=== PATIENT | female | born 1970 | race Asian ===

== ENCOUNTER 2018-07-06 14:46 | Outpatient (CLI) | payer OTHER ==
[2018-07-06] MEDS ORDERED: GABA300C2 PO (18:08)
[2018-07-06] MEDS ORDERED: AMIT25TA22 PO (18:09)
[2018-07-06] MEDS ORDERED: CELEXA40 MG PO (18:09)
[2018-07-06] MEDS ORDERED: HYDRALAZINE50 MG PO (18:10)
[2018-07-06] MEDS ORDERED: PROVENTIL108 MCG/AC INH (18:11)
[2018-07-06] MEDS ORDERED: NIFE30TA PO (18:11)
[2018-07-06] MEDS ORDERED: RANI150T78 PO (18:12)
[2018-07-06] MEDS ORDERED: CYCL10TA35 PO (18:13)
[2018-07-06] MEDS ORDERED: CARV25TA PO (18:13)
== END 2018-07-06 14:49 | disposition short-term general hospital (02) ==
LOC: AMB 14:46
DX: R06.02 Shortness of breath (principal)
CPT/HCPCS: A0425; A0427

== ENCOUNTER 2018-07-06 14:50 | Emergency (ER) | payer OTHER ==
[~2018-07-06] VITALS: Ht 162.6 cm; Wt 192.8 kg
[2018-07-06 15:25] LABS: PLATELET COUNT 290 K/uL (152-353)
[2018-07-06 15:30] LABS: POTASSIUM 3.7 mmol/L (3.6-5.2); SODIUM 141 mmol/L (136-145)
[2018-07-06] MEDS ORDERED: GABA300C2 PO (18:08)
[2018-07-06] MEDS ORDERED: CELEXA40 MG PO (18:09)
[2018-07-06] MEDS ORDERED: AMIT25TA22 PO (18:09)
[2018-07-06] MEDS ORDERED: HYDRALAZINE50 MG PO (18:10)
[2018-07-06] MEDS ORDERED: PROVENTIL108 MCG/AC INH (18:11)
[2018-07-06] MEDS ORDERED: NIFE30TA PO (18:11)
[2018-07-06] MEDS ORDERED: RANI150T78 PO (18:12)
[2018-07-06] MEDS ORDERED: CYCL10TA35 PO (18:13)
[2018-07-06] MEDS ORDERED: CARV25TA PO (18:13)
[2018-07-06 23:00] VITALS: BP 187/116
== END 2018-07-06 23:00 | disposition short-term general hospital (02) ==
LOC: ED 14:50
PROVIDERS: Emergency Medicine
DX: J18.8 Other pneumonia, unspecified organism (principal); R06.03 Acute respiratory distress; R06.02 Shortness of breath
CPT/HCPCS: 36415; 36600; 51702; 80053; 81000; 82550; 82553; 82805; 83880; 84484; 85027; 93005; 94664; 96374; 96376; 99285; J1940; J3490

== ENCOUNTER 2018-07-21 10:08 | Outpatient (CLI) | payer OTHER ==
[~2018-07-21 10:08] MED LIST: AMIT25TA22 PO; CARV25TA PO; CELEXA40 MG PO; CYCL10TA35 PO; GABA300C2 PO; HYDRALAZINE50 MG PO; NIFE30TA PO; PROVENTIL108 MCG/AC INH; RANI150T78 PO
[2018-07-22] MEDS ORDERED: CYCL10TA35 PO (11:52)
== END 2018-07-21 10:13 | disposition short-term general hospital (02) ==
LOC: AMB 10:08
DX: R26.2 Difficulty in walking, not elsewhere classified (principal)
CPT/HCPCS: A0425; A0429

== ENCOUNTER 2018-07-21 10:10 | Inpatient (IN) | payer OTHER ==
[~2018-07-21] VITALS: Ht 152.4 cm; Wt 217.7 kg
[2018-07-21] VITALS (8 sets, daily range): BP systolic 157–185; BP diastolic 84–120; TEMP 97.7–98.6; Ht 152.4 cm; Wt 217.7 kg
[2018-07-21 11:19] LABS: PLATELET COUNT 202 K/uL (152-353)
[2018-07-21 11:47] LABS: POTASSIUM 3.2 mmol/L (3.6-5.2); SODIUM 143 mmol/L (136-145)
[2018-07-22] VITALS: BP 133/56; TEMP 99.2
[2018-07-22 04:00] VITALS: BP 157/65; TEMP 99.1
[2018-07-22 08:05] VITALS: BP 135/59; TEMP 98.8
[2018-07-22] MEDS ORDERED: CYCL10TA35 PO (11:52)
[2018-07-22 12:06] VITALS: BP 143/59; TEMP 99
[2018-07-22 12:31] LABS: PLATELET COUNT 197 K/uL (152-353)
[2018-07-22 13:02] LABS: POTASSIUM 3.3 mmol/L (3.6-5.2); SODIUM 146 mmol/L (136-145)
[2018-07-22 16:21] VITALS: BP 110/96; TEMP 98.1
[2018-07-22 20:00] VITALS: BP 136/79; TEMP 98.2
[2018-07-23] VITALS: BP 127/90; TEMP 98.2
[2018-07-23 04:00] VITALS: BP 143/77; TEMP 98.6
[2018-07-23 06:28] LABS: PLATELET COUNT 180 K/uL (152-353)
[2018-07-23 06:43] LABS: POTASSIUM 3.7 mmol/L (3.6-5.2)
[2018-07-23 08:27] VITALS: BP 133/73; TEMP 98.7
[2018-07-23 12:18] VITALS: BP 147/95; TEMP 98.7
[2018-07-23 16:26] VITALS: BP 152/80; TEMP 98.4
[2018-07-23 20:00] VITALS: BP 150/79; TEMP 99.2
[2018-07-24] VITALS: BP 157/74; TEMP 99.1
[2018-07-24 03:57] VITALS: BP 141/82; TEMP 98.7
[2018-07-24 05:55] LABS: PLATELET COUNT 170 K/uL (152-353)
[2018-07-24 06:11] LABS: POTASSIUM 3.3 mmol/L (3.6-5.2)
[2018-07-24 08:14] VITALS: BP 133/74; TEMP 97.9
[2018-07-24 12:07] VITALS: BP 145/71; TEMP 97.5
[2018-07-24 16:05] VITALS: BP 133/65; TEMP 98
[2018-07-24 20:00] VITALS: BP 140/65; TEMP 99
[2018-07-25] VITALS: BP 143/77; TEMP 98.7
[2018-07-25 04:00] VITALS: BP 127/64; TEMP 98.3
[2018-07-25 05:33] LABS: PLATELET COUNT 189 K/uL (152-353)
[2018-07-25 05:51] LABS: POTASSIUM 3.5 mmol/L (3.6-5.2)
[2018-07-25 08:28] VITALS: BP 137/74; TEMP 98.3
[2018-07-25 12:03] VITALS: BP 160/66; TEMP 99.1
[2018-07-25 16:05] VITALS: BP 133/68; TEMP 98.4
[2018-07-25 20:07] VITALS: BP 174/89; TEMP 98.2
[2018-07-26 00:16] VITALS: BP 138/84; TEMP 99.1
[2018-07-26 04:00] VITALS: BP 147/70; TEMP 98.6
[2018-07-26 05:35] LABS: PLATELET COUNT 192 K/uL (152-353)
[2018-07-26 06:01] LABS: POTASSIUM 3.4 mmol/L (3.6-5.2)
[2018-07-26 08:17] VITALS: BP 136/70; TEMP 98.3
[2018-07-26 12:00] VITALS: BP 138/68; TEMP 98.1
[2018-07-26 16:12] VITALS: BP 135/70; TEMP 97.8
[2018-07-26 20:27] VITALS: BP 131/63; TEMP 98.5
[2018-07-27] VITALS: BP 138/60; TEMP 98.8
[2018-07-27 04:00] VITALS: BP 134/69; TEMP 98
[2018-07-27 04:07] LABS: PLATELET COUNT 205 K/uL (152-353)
[2018-07-27 06:16] LABS: POTASSIUM 3.5 mmol/L (3.6-5.2)
[2018-07-27 08:00] VITALS: BP 143/76; TEMP 98.2
[2018-07-27 12:00] VITALS: BP 160/86; TEMP 98.5
[2018-07-27 16:00] VITALS: BP 142/72; TEMP 98.1
[2018-07-27 20:00] VITALS: BP 148/78; TEMP 98.8
[2018-07-28] VITALS: BP 133/66; TEMP 99.3
[2018-07-28 04:00] VITALS: BP 134/77; TEMP 98.8
[2018-07-28 07:27] LABS: PLATELET COUNT 188 K/uL (152-353)
[2018-07-28 08:10] VITALS: BP 152/82; TEMP 99.1
[2018-07-28 08:17] LABS: POTASSIUM 3.6 mmol/L (3.6-5.2)
[2018-07-28 12:18] VITALS: BP 119/63; TEMP 98.9
[2018-07-28 16:12] VITALS: BP 145/75; TEMP 98.4
[2018-07-28 20:00] VITALS: BP 135/69; TEMP 99.2
[2018-07-29] VITALS: BP 148/85; TEMP 98.6
[2018-07-29 04:00] VITALS: BP 145/83; TEMP 98.4
[2018-07-29 07:03] LABS: PLATELET COUNT 231 K/uL (152-353)
[2018-07-29 07:12] LABS: POTASSIUM 3.3 mmol/L (3.6-5.2)
[2018-07-29 08:05] VITALS: BP 138/82; TEMP 98.6
[2018-07-29 12:15] VITALS: BP 137/77; TEMP 98.9
[2018-07-29 16:03] VITALS: BP 139/75; TEMP 98.8
[2018-07-29 20:08] VITALS: BP 149/73; TEMP 98.6
[2018-07-30 00:09] VITALS: BP 114/56; TEMP 99
[2018-07-30 04:00] VITALS: BP 121/68; TEMP 98.4
[2018-07-30 05:18] LABS: PLATELET COUNT 264 K/uL (152-353)
[2018-07-30 05:22] LABS: POTASSIUM 3.5 mmol/L (3.6-5.2)
[2018-07-30 08:05] VITALS: BP 140/67; TEMP 97.8
[2018-07-30 12:28] VITALS: BP 127/70; TEMP 98.1
[2018-07-30 16:01] VITALS: BP 140/62; TEMP 98.9
[2018-07-30 20:00] VITALS: BP 116/66; TEMP 99.2
[2018-07-31] VITALS: BP 132/62; TEMP 98.6
[2018-07-31 04:00] VITALS: BP 135/69; TEMP 98.9
[2018-07-31 04:57] LABS: PLATELET COUNT 301 K/uL (152-353)
[2018-07-31 05:13] LABS: POTASSIUM 3.5 mmol/L (3.6-5.2)
[2018-07-31 08:09] VITALS: BP 151/86; TEMP 98.4
[2018-07-31 12:15] VITALS: BP 130/77; TEMP 97.6
[2018-07-31 16:10] VITALS: BP 156/84; TEMP 98.1
[2018-07-31 20:15] VITALS: BP 155/65; TEMP 99.2
[2018-08-01] VITALS (7 sets, daily range): BP systolic 133–159; BP diastolic 64–93; TEMP 97.9–99.2
[2018-08-01 05:07] LABS: PLATELET COUNT 333 K/uL (152-353)
[2018-08-01 05:23] LABS: POTASSIUM 3.8 mmol/L (3.6-5.2)
[2018-08-02 04:00] VITALS: BP 146/88; TEMP 98.4
[2018-08-02 05:18] LABS: PLATELET COUNT 396 K/uL (152-353)
[2018-08-02 06:08] LABS: POTASSIUM 3.5 mmol/L (3.6-5.2)
[2018-08-02 08:00] VITALS: BP 162/88; TEMP 98.1
[2018-08-02 12:00] VITALS: BP 143/82; TEMP 98.3
[2018-08-02 16:00] VITALS: BP 148/79; TEMP 98.4
[2018-08-02 20:23] VITALS: BP 146/71; TEMP 98.6
[2018-08-03 00:11] VITALS: BP 125/68; TEMP 98.7
[2018-08-03 04:00] VITALS: BP 163/79; TEMP 98.7
[2018-08-03 04:43] LABS: PLATELET COUNT 391 K/uL (152-353)
[2018-08-03 04:52] LABS: POTASSIUM 3.8 mmol/L (3.6-5.2)
[2018-08-03 08:08] VITALS: BP 145/83; TEMP 98.1
[2018-08-03 12:06] VITALS: BP 158/87; TEMP 98.2
[2018-08-03 16:08] VITALS: BP 118/70; TEMP 98.2
[2018-08-03 20:04] VITALS: BP 121/69; TEMP 98.9
[2018-08-04] VITALS: BP 119/63; TEMP 98.7
[2018-08-04 04:00] VITALS: BP 128/78; TEMP 98.9
[2018-08-04 05:12] LABS: PLATELET COUNT 399 K/uL (152-353)
[2018-08-04 08:17] VITALS: BP 145/84; TEMP 97.9
[2018-08-04 12:02] VITALS: BP 132/78; TEMP 98.9
[2018-08-04 16:02] VITALS: BP 124/84; TEMP 97.9
[2018-08-04 20:18] VITALS: BP 122/62; TEMP 98
[2018-08-05 00:02] VITALS: BP 141/63; TEMP 98.5
[2018-08-05 04:07] VITALS: BP 139/70; TEMP 98
[2018-08-05 05:49] LABS: PLATELET COUNT 456 K/uL (152-353)
[2018-08-05 06:09] LABS: POTASSIUM 4.1 mmol/L (3.6-5.2); SODIUM 142 mmol/L (136-145)
[2018-08-05 08:26] VITALS: BP 132/84; TEMP 98.4
[2018-08-05 12:25] VITALS: BP 149/84; TEMP 98
[2018-08-05 16:08] VITALS: BP 118/83; TEMP 98.6
[2018-08-05 20:00] VITALS: BP 132/76; TEMP 98.2
[2018-08-06] VITALS: BP 129/80; TEMP 99.2
[2018-08-06 04:00] VITALS: BP 126/69; TEMP 99.2
[2018-08-06 08:11] VITALS: BP 153/82; TEMP 98.6
[2018-08-06 12:03] VITALS: BP 141/74; TEMP 98.2
[2018-08-06 16:04] VITALS: BP 144/79; TEMP 98.3
[2018-08-06 19:51] VITALS: BP 111/63; TEMP 98.8
[2018-08-07] VITALS: BP 136/73; TEMP 98.8
[2018-08-07 04:00] VITALS: BP 133/68; TEMP 98.9
[2018-08-07 08:06] VITALS: BP 139/81; TEMP 98.3
[2018-08-07 12:05] VITALS: BP 141/68; TEMP 98.3
[2018-08-07 16:07] VITALS: BP 147/74; TEMP 98.7
[2018-08-07 20:00] VITALS: BP 146/74; TEMP 98.7
[2018-08-08] VITALS: BP 129/78; TEMP 98.7
[2018-08-08 04:00] VITALS: BP 124/84; TEMP 98.7
[2018-08-08 05:58] LABS: PLATELET COUNT 462 K/uL (152-353)
[2018-08-08 06:17] LABS: POTASSIUM 3.8 mmol/L (3.6-5.2)
[2018-08-08 08:06] VITALS: BP 144/73; TEMP 98.5
[2018-08-08 12:02] VITALS: BP 139/79; TEMP 98.8
[2018-08-08 16:05] VITALS: BP 133/73; TEMP 98.3
[2018-08-08 20:00] VITALS: BP 150/87; TEMP 98
[2018-08-09 00:08] VITALS: BP 129/72; TEMP 98.9
[2018-08-09 04:00] VITALS: BP 123/77; TEMP 96.6
[2018-08-09 08:29] VITALS: BP 133/71; TEMP 98.2
[2018-08-09 12:10] VITALS: BP 140/82; TEMP 98.1
[2018-08-09 16:06] VITALS: BP 138/83; TEMP 98.2
[2018-08-09 20:07] VITALS: BP 189/81; TEMP 98.3
[2018-08-10] VITALS (7 sets, daily range): BP systolic 136–174; BP diastolic 72–86; TEMP 98.2–99.3
[2018-08-10 10:54] LABS: PLATELET COUNT 479 K/uL (152-353)
[2018-08-11 04:00] VITALS: BP 127/86; TEMP 98.9
[2018-08-11 08:02] VITALS: BP 136/73; TEMP 98.2
[2018-08-11] MEDS ORDERED: POTA20TA4 PO (08:33)
[2018-08-11] MEDS ORDERED: CITA20TA2 PO (08:33)
[2018-08-11] MEDS ORDERED: FURO40TA93 PO (08:33)
[2018-08-11] MEDS ORDERED: FERROUS SULF325 MG PO (08:33)
[2018-08-11] MEDS ORDERED: MULTTAB52 PO (08:33)
[2018-08-11] MEDS ORDERED: WELLBUTRIN SR 100MG PO (08:33)
[2018-08-11] MEDS ORDERED: ZINC220C4 PO (08:33)
== END 2018-08-11 09:45 | DRG 189 ==
LOC: ED 10:10 → MED/SURG 17:30
PROVIDERS: Emergency Medicine; Family Medicine
DX: J96.02 Acute respiratory failure with hypercapnia (principal); J96.01 Acute respiratory failure with hypoxia; I10 Essential (primary) hypertension; M79.7 Fibromyalgia; F32.9 Major depressive disorder, single episode, unspecified; E66.09 Other obesity due to excess calories; N17.8 Other acute kidney failure; J44.9 Chronic obstructive pulmonary disease, unspecified; R60.0 Localized edema; I12.9 Hypertensive chronic kidney disease with stage 1 through stage 4 chronic kidney disease, or unspecified chronic kidney disease; N18.3 Chronic kidney disease, stage 3 (moderate); D50.8 Other iron deficiency anemias; L89.152 Pressure ulcer of sacral region, stage 2
CPT/HCPCS: 36415; 36600; 51702; 80053; 80307; 80320; 80329; 81000; 82550; 82553; 82805; 83880; 84443; 84484; 84550; 85007; 85027; 85379; 85610; 93005; 94760; 99283; J1650; J1940; J2270; J3490